=== PATIENT | female | born 1995 | race African-American/Black ===

== ENCOUNTER 2020-03-27 18:04 | Emergency (ER) | payer SELFPAY ==
[~2020-03-27] VITALS: Ht 154.9 cm; Wt 52.2 kg
[2020-03-27] MEDS ORDERED: SODIUM CHLORIDE 0.9% 1000ML 1,000 ML IV STA (18:25)
[2020-03-27] MEDS ORDERED: SODIUM CHLORIDE 0.9% 1000ML 1,000 ML ONE (18:45)
[2020-03-27] MEDS ORDERED: SODIUM CHLORIDE 0.9% 50ML 50 ML ONE (18:56)
[2020-03-27] MEDS ORDERED: IOPAMIDOL 370 MG/ML 200 ML INFUS..BTL INJ ONE (18:57)
[2020-03-27] MEDS ORDERED: IBUPROFEN IB200 MG PO (20:07)
[2020-03-27] MEDS ORDERED: ACETAMINOPHEN500 MG PO (20:07)
[2020-03-27 20:20] VITALS: BP 122/72
== END 2020-03-27 20:22 | disposition home or self-care (01) ==
LOC: EDBD 18:04 → FSED 19:00
DX: R10.32 Left lower quadrant pain (principal); F17.210 Nicotine dependence, cigarettes, uncomplicated
CPT/HCPCS: 74177; 80053; 81003; 81025; 85025; 99284; J7030; Q9967